=== PATIENT | male | born 1975 | race Caucasian/White ===

== ENCOUNTER 2023-10-03 16:14 | Emergency (ER) | payer MEDICAID ==
[~2023-10-03] VITALS: Ht 170.2 cm; Wt 70.0 kg
[2023-10-03 16:20] VITALS: TEMP 98.2; O2SAT 99
[2023-10-03 17:20] LABS: BASOPHILS % 0.2 % (0.0-2.0); EOSINOPHILS % 0.1 % (0.0-5.0); HEMATOCRIT. 41.9 % (42.0-52.0); HEMOGLOBIN. 14.1 g/dL (14.0-18.0); LYMPHOCYTES % 9.8 % (20.0-50.0); MEAN CORPUSCULAR HEMOGLOBIN 32.6 pg (28.0-32.0); MEAN CORPUSCULAR HGB CONC 33.6 g/dL (31.0-37.0); MEAN PLATELET VOLUME 6.8 fl (7.4-10.4); MONOCYTES % 4.8 % (2.0-8.0); NEUTROPHILS % 85.1 % (40.0-76.0); PLATELET 403 x1000/uL (130-400); RED BLOOD CELL COUNT 4.31 mill/uL (4.7-6.1); WHITE BLOOD COUNT 15.8 x1000/uL (4.5-11.0)
[2023-10-03] MEDS: HALOPERIDOL LACTATE 5MG/ML VIAL IM ONE (17:26)
[2023-10-03] MEDS: PANTOPRAZOLE SODIUM 40 MG/VIAL IV STA (17:27)
[2023-10-03 17:29] LABS: ALANINE AMINOTRANSFERASE 24 IU/L (10-49); ALBUMIN 4.1 g/dL (3.2-4.8); ASPARTATE AMINOTRANSFERASE 30 IU/L (<34); BILIRUBIN TOTAL 0.7 mg/dL (0.1-1.0); CALCIUM 9.2 mg/dL (8.7-10.4); CARBON DIOXIDE 24 mEq/L (21-32); CHLORIDE 100 mEq/L (98-107); CREATININE 0.7 mg/dL (0.6-1.3); GLUCOSE 115 mg/dL (70-105); POTASSIUM 2.9 mEq/L (3.5-5.1); PROTEIN TOTAL 7.1 g/dL (6.0-8.3); SODIUM 133 mEq/L (136-145); UREA NITROGEN BLOOD 11 mg/dL (9-23)
[2023-10-03] MEDS: SODIUM CHLORIDE 0.9% 1,000 ML IV ONE (17:34)
[2023-10-03 17:37] LABS: PROTHROMBIN TIME 10.9 sec (9.6-11.0)
[2023-10-03 17:44] LABS: ETHANOL BLOOD < 10 mg/dL (<10)
[2023-10-03 19:19] LABS: CLARITY URINE CLEAR (CLEAR); COLOR URINE YELLOW (YELLOW); GLUCOSE URINE NEGATIVE (NEGATIVE); KETONES URINE 2+ (NEGATIVE); LEUKOCYTE ESTERASE URINE NEGATIVE (NEGATIVE); NITRITE URINE NEGATIVE (NEGATIVE); OCCULT BLOOD URINE NEGATIVE (NEGATIVE); PROTEIN URINE NEGATIVE (NEGATIVE); SPECIFIC GRAVITY URINE 1.009 (1.005-1.030); UROBILINOGEN URINE 0.2 E.U./dL (0.2-1.0)
[2023-10-03 19:37] LABS: *AMPHETAMINES SCREEN URINE PRESUMPTIVE POSITIVE (NEGATIVE); *BARBITURATES SCREEN URINE NEGATIVE (NEGATIVE); *BENZODIAZEPINES SCREEN URINE NEGATIVE (NEGATIVE); *COCAINE SCREEN URINE NEGATIVE (NEGATIVE); CANNABINOID URINE SCREEN NEGATIVE (NEGATIVE); ECSTASY MDMA SCREEN URINE NEGATIVE (NEGATIVE); METHADONE URINE SCREEN Neg (NEGATIVE); OPIATES URINE SCREEN NEGATIVE (NEGATIVE); PHENCYCLIDINE URINE SCREEN NEGATIVE (NEGATIVE)
[2023-10-03] MEDS ORDERED: POTASSIUM CHLORIDE INJ 40 MEQ in DEXT 5% WATER 250 ML IV ONE (20:15)
[2023-10-03] MEDS ORDERED: PROT40 MT (21:08)
[2023-10-03] MEDS ORDERED: SUCR1TAB MT (21:08)
[2023-10-03] MEDS: KCL 20MEQ/100ML X 2 FOR TOTAL KCL 40MEQ/200ML IV SCH (23:31)
[2023-10-03] MEDS: POTASSIUM CHLORIDE 20MEQ TABLET SR PO NR (23:31)
[2023-10-03] MEDS: DIPHENHYDRAMINE 50MG/ML VIAL IV NR (23:31)
[2023-10-03] MEDS: MAGNESIUM/ALUMINUM HYDROXIDE/SIMETHICONE 30ML UDC PO NR (23:54)
[2023-10-03] MEDS: PROCHLORPERAZINE 10MG/2ML VIAL IV NR (23:54)
[2023-10-04 00:12] VITALS: BP 131/92; PULSE 99; RESP 15
[2023-10-04] MEDS ORDERED: IBUP-2028 MT (05:53)
== END 2023-10-04 00:14 | disposition home or self-care (01) ==
LOC: ER 16:14
DX: K20.90 Esophagitis, unspecified without bleeding (principal); E87.6 Hypokalemia
CPT/HCPCS: 80053; 80305; 81003; 80320; 83690; 85025; 85610; 86850; 86900; 86901; 36415; 71045; 74176; 96361; 96372; 96374; 96375; 99285; J1200; J1630; C9113; J3480; J0780; J7030; Z7610 ×6; G0480

== ENCOUNTER 2023-10-04 01:48 | Emergency (ER) | payer MEDICAID ==
[~2023-10-04] VITALS: Ht 165.1 cm; Wt 63.0 kg
[~2023-10-04 01:48] MED LIST: PROT40 MT; SUCR1TAB MT
[2023-10-04 02:36] VITALS: O2SAT 100
[2023-10-04] MEDS ORDERED: IBUP-2028 MT (05:53)
[2023-10-04] MEDS: IBUPROFEN 400MG TABLET PO ONE (06:12)
[2023-10-04 06:55] VITALS: BP 125/87; PULSE 76; RESP 18; TEMP 98.7
== END 2023-10-04 10:13 | disposition home or self-care (01) ==
LOC: ER 01:48
DX: R52 Pain, unspecified (principal); Z90.49 Acquired absence of other specified parts of digestive tract
CPT/HCPCS: 99282